=== PATIENT | female | born 1955 | race Caucasian/White ===

== ENCOUNTER → 2022-11-07 09:33 | Outpatient (BNVA) | payer MEDICARE, SELFPAY | PROVIDERS: PCP Clinical Nurse Specialist Adult Health; Visit Provider Clinical Nurse Specialist Adult Health | DX: I10 Essential (primary) hypertension (principal); E11.9 Type 2 diabetes mellitus without complications; J41.1 Mucopurulent chronic bronchitis | CPT/HCPCS: 80053; 80061; 83036; 85025 ==

== ENCOUNTER → 2023-04-17 08:55 | Outpatient (BNVA) | payer MEDICARE, SELFPAY | PROVIDERS: PCP Clinical Nurse Specialist Adult Health; Referring Provider Clinical Nurse Specialist Adult Health; Visit Provider Psychiatry & Neurology Neurology | DX: G25.0 Essential tremor (principal); Z86.73 Personal history of transient ischemic attack (TIA), and cerebral infarction without residual deficits | CPT/HCPCS: 99203 ==

== ENCOUNTER → 2023-04-20 10:21 | Outpatient (BNVA) | payer MEDICARE, SELFPAY | PROVIDERS: PCP Clinical Nurse Specialist Adult Health; Visit Provider Clinical Nurse Specialist Adult Health | DX: E11.9 Type 2 diabetes mellitus without complications | CPT/HCPCS: 80053; 80061; 83036; 85025 ==

== ENCOUNTER 2023-04-26 13:13 | Outpatient (CLI) | payer MEDICARE, SELFPAY ==
--- NOTE | 2023-04-26 13:30 | USCV_ITS ---
Makayla Up Age: 67 Gender: F : 1955 Exam Date: 04/26/2023 13:27 Ordering Phys: Niall Manzanares MD Technologist: ROSS Exam Location: [facility] – [place] Indication: CVA IN PAST Risk Factors: PRIOR CVA Previous Vascular Surgery: THYROID REMOVED Right Brachial BP: / Left Brachial BP: / Right Left Velocity (cm/s) Spectral Plaque Velocity (cm/s) Spectral Plaque Syst/Diast Broadening Syst/Diast Broadening 90.40/ 16.50 Prox CCA 54.70 / 11.40 45.90/ 10.70 Mid CCA 47.80 / 14.80 40.10/ 11.20 Hetro Distal CCA 41.60 / 10.80 Hetro 48.40/ 14.20 Prox ICA 43.70 / 18.60 53.00/ 17.70 Mid ICA 49.30 / 17.80 62.60/ 22.80 Distal ICA 69.50 / 23.40 55.20 ECA 79.20 1.36 ICA/CCA 1.45 Antegrade Vertebral Antegrade 37.60/ 10.80 cm/s 33.60/ 6.80 cm/s Tri Subclavian Tri 46.10 68.30 CONCLUSIONS Right ICA stenosis <50%. Moderate atheromatous plaque right carotid bulb/ICA. Left ICA stenosis <50%. Moderate atheromatous plaque left carotid bulb/ICA. Intimal thickening in the common carotid arteries and internal carotid arteries bilaterally. Normal antegrade Doppler flow noted in the right vertebral artery. Normal antegrade Doppler flow noted in the left vertebral artery. Harry Castillo MD (Electronically Signed) Final Date: 26 April 2023 16:01 S
== END 2023-04-26 13:14 | disposition home or self-care (01) ==
PROVIDERS: PCP Clinical Nurse Specialist Adult Health; Visit Provider Psychiatry & Neurology Neurology
DX: Z86.73 Personal history of transient ischemic attack (TIA), and cerebral infarction without residual deficits (principal); I65.23 Occlusion and stenosis of bilateral carotid arteries
CPT/HCPCS: 93880

== ENCOUNTER 2023-05-29 11:31 | Outpatient (CLI) | payer MEDICARE, SELFPAY ==
--- NOTE | 2023-05-29 11:45 | MR_ITS ---
WS: [id number] MRI HEAD WITH CONTRAST TECHNIQUE: Sagittal T1, T2 axial, T2 axial FLAIR, axial susceptibility weighted imaging, axial diffus ion weighted images, and coronal T2 images were obtained. Pre and post-T1 axial and post T1 coronal i mages. ADC and FSPGR images. CLINICAL INFORMATION: Z86.73 - Personal history of transient ischemic attack (T... COMPARISON: None. FINDINGS: No evidence of restricted diffusion to suggest acute ischemia. Minimal small vessel changes. No signi ficant parenchymal volume loss. Normal posterior fossa. Normal vascular flow voids at the skull base. No extra-axial fluid collections. No evidence of mass or mass effect. Paranasal sinuses are well aer ated. Mastoid air cells are well aerated. No hemosiderin on the susceptibility ability weighted images. Normal optic chiasm and pituitary infun dibulum. Temporal lobes and hippocampal formations are normal in appearance. No abnormal gadolinium e nhancement. Normal optic chiasm and pituitary infundibulum. Normal dural venous sinuses. IMPRESSION: 1. No evidence of restricted diffusion to suggest acute ischemia. 2. Minimal small vessel changes. No significant parenchymal volume loss. 3. No hemosiderin on susceptibility-weighted images. 4. No abnormal gadolinium enhancement. 5. No other suspicious findings.
[2023-05-29] MEDS: gadobenate dimeglumine 20 mL vial IV (12:15)
== END 2023-05-29 11:32 | disposition home or self-care (01) ==
LOC: RAD 11:32
PROVIDERS: PCP Clinical Nurse Specialist Adult Health; Visit Provider Psychiatry & Neurology Neurology
DX: Z86.73 Personal history of transient ischemic attack (TIA), and cerebral infarction without residual deficits (principal)
CPT/HCPCS: 70553; A9577

== ENCOUNTER → 2024-02-05 11:07 | Outpatient (BNVA) | payer MEDICARE, MEDICAID, SELFPAY | PROVIDERS: PCP Clinical Nurse Specialist Adult Health; Visit Provider Clinical Nurse Specialist Adult Health | DX: E11.9 Type 2 diabetes mellitus without complications (principal); F32.1 Major depressive disorder, single episode, moderate | CPT/HCPCS: 80053; 80061; 83036; 84443; 85025 ==

== ENCOUNTER 2025-02-24 14:04 | Outpatient (CLI) | payer MEDICARE, MEDICAID, SELFPAY ==
--- NOTE | 2025-02-24 14:12 | US_ITS ---
WS: [id number] Pelvic ultrasound, 02/24/2025 Clinical Data: VAGINAL SPOTTING Comparison: None. Findings: The uterus measures 6.8 cm x 4.9 cm x 4.1 cm. The endometrium is 0.5 cm. No intrauterine is seen. There is a fundal fibroid measuring 1.6 x 1.7 x 1.8 cm. The endometrium shows heterogeneous echoes and there are probable multiple small fibroids and cysts throughout the uterus. Neither ovary was identified. US/US transvaginal [id number] Impression: 1. Prominent fundal uterine fibroid. 2. Heterogeneous echogenicity of the uterus from numerous small cysts and fibro ids. 3. Neither ovary was identified.
== END 2025-02-24 14:05 | disposition home or self-care (01) ==
LOC: RAD 14:09
PROVIDERS: PCP Clinical Nurse Specialist Adult Health; Visit Provider Nurse Practitioner Family
DX: D25.9 Leiomyoma of uterus, unspecified (principal); N93.9 Abnormal uterine and vaginal bleeding, unspecified
CPT/HCPCS: 76830

== ENCOUNTER → 2025-04-08 10:37 | Outpatient (BNVA) | payer MEDICARE, MEDICAID, SELFPAY | PROVIDERS: PCP Clinical Nurse Specialist Adult Health; Referring Provider Nurse Practitioner Family; Visit Provider Nurse Practitioner Women's Health | DX: Z12.4 Encounter for screening for malignant neoplasm of cervix (principal) | CPT/HCPCS: 87624 ==

== ENCOUNTER → 2025-06-25 10:57 | Outpatient (BNVA) | payer MEDICARE, MEDICAID, SELFPAY | PROVIDERS: PCP Clinical Nurse Specialist Adult Health; Visit Provider Dermatology | DX: L21.8 Other seborrheic dermatitis (principal); L82.1 Other seborrheic keratosis; D18.01 Hemangioma of skin and subcutaneous tissue; L57.8 Other skin changes due to chronic exposure to nonionizing radiation | CPT/HCPCS: 99203 ==